=== PATIENT | male | born 1955 | race Caucasian/White ===

== ENCOUNTER 2021-06-22 19:42 | Inpatient (IN) | payer OTHER ==
[~2021-06-22] VITALS: Ht 182.9 cm; Wt 147.0 kg
[2021-06-22] MEDS ORDERED: NEURONTIN300 MG PO (20:21)
[2021-06-22] MEDS ORDERED: COREG25 MG PO (20:22)
[2021-06-22] MEDS ORDERED: HYDCHL25 PO (20:28)
[2021-06-22] MEDS ORDERED: METFORMIN HCL500 M3 PO (20:29)
[2021-06-22] MEDS ORDERED: LISI20 PO (20:29)
[2021-06-22] MEDS ORDERED: METHI10 PO (20:29)
[2021-06-22] MEDS ORDERED: OMEP20ER PO (20:30)
[2021-06-22] MEDS ORDERED: ALDACTONE100 MG PO (20:30)
[2021-06-22] MEDS ORDERED: Lamictal150 MG PO (20:30)
[2021-06-22] MEDS ORDERED: Ventolin/Prove6.7 GM INH ×2 (20:31→20:32)
[2021-06-22 20:32] LABS: BASOPHILS ABSOLUTE AUTO 0.04 K/mm3 (0.00-0.23); BASOPHILS PERCENT AUTO 0 % (0-2); EOSINOPHILS ABSOLUTE AUTO 0.02 K/mm3 (0.00-0.68); EOSINOPHILS PERCENT AUTO 0 % (0-6); Hematocrit 45.1 % (37.0-53.0); Hemoglobin 14.2 g/dL (13.5-17.5); IMMATURE GRAN ABSOLUTE AUTO 0.02 K/mm3 (0.00-0.10); IMMATURE GRAN PERCENT AUTO 0 % (0-1); LYMPHOCYTES PERCENT AUTO 14 % (21-46); MONOCYTES ABSOLUTE AUTO 0.81 K/mm3 (0.16-1.47); MONOCYTES PERCENT AUTO 8 % (4-13); Mean Corpuscular HGB 30.5 pg (26.0-34.0); Mean Corpuscular HGB Conc 31.5 g/dL (31.5-36.5); Mean Corpuscular Volume 97 fL (80-100); NEUTROPHILS ABSOLUTE AUTO 7.45 K/mm3 (1.96-9.15); NEUTROPHILS PERCENT AUTO 77 % (41-73); Platelet Count 319 K/mm3 (150-400); RDW Coefficient Variation 13.2 % (11.7-14.2); RDW Standard Deviation 47.5 fL (35.1-46.3); Red Blood Cell Count 4.66 M/mm3 (4.30-5.90); White Blood Cell Count 9.74 K/mm3 (4.00-11.30)
[2021-06-22] MEDS ORDERED: BUPROPION XL150 M1 PO (20:32)
[2021-06-22] MEDS ORDERED: TIZA4 PO (20:33)
[2021-06-22] MEDS ORDERED: JANTOVEN5 M2 PO (20:34)
[2021-06-22] MEDS ORDERED: ATOR40TA PO (20:35)
[2021-06-22] MEDS ORDERED: WARF2.5 PO (20:36)
[2021-06-22 20:48] LABS: Troponin I <0.015 ng/mL (0.000-0.040)
[2021-06-22 20:55] LABS: Alanine Aminotransfer (ALT/SGP 32 U/L (12-78); Albumin, Blood 3.1 g/dL (3.4-5.0); Albumin/Globulin Ratio 0.7 (0.8-1.8); Alk Phos 136 U/L (50-136); Anion Gap 2 mmol/L (6-16); Aspartate Aminotrans (AST/SGOT 15 U/L (12-37); Bilirubin, Total 0.2 mg/dL (0.1-1.0); Blood Urea Nitrogen 36 mg/dL (8-24); Bun/Creatinine Ratio 30.3 (12.0-20.0); CO2, Blood 30 mmol/L (21-32); Chloride, Blood 99 mmol/L (98-108); Creatinine, Blood 1.19 mg/dL (0.60-1.20); Globulin, Blood 4.4 g/dL (2.2-4.0); Glomerular Filtration Rate >60 (60-); Glucose, Blood 150 mg/dL (70-99); Potassium, Blood 5.7 mmol/L (3.5-5.5); Sodium, Blood 131 mmol/L (136-145); Total Protein, Blood 7.5 g/dL (6.4-8.2)
[2021-06-23 00:11] LABS: PCO2 Arterial 54.4 mmHg (35-45); PO2 Arterial 69.3 mmHg (80-100); pH Blood Arterial 7.36 (7.35-7.45)
[2021-06-23 00:32] LABS: SARS-Cov-2 (COVID-19) PCR, MMC NEGATIVE (NEGATIVE)
[2021-06-23 00:39] LABS: International Normalized Ratio 3.44; Prothrombin Time Results 33.3 Sec (9.7-11.5)
--- NOTE | 2021-06-23 05:07 | NUR ---
SHIFT SUMMARY PT TO UNIT FROM ED. AXO. IN ST 100. ON 2LNC, CONTINUES WITH THIS. VSS. PT STATES WOB HAS BECOME "MUCH EASIER". DENIES WHEEZING/CRACKLING. ADMIT COMPLETED. IV INSULIN AND D50 GIVEN PER ORDERS TO DECREASE POTASSIUM. OTHERWISE, PT RESTING IN ROOM. USING CALL LIGHT CORRECTLY.
[2021-06-23 06:02] LABS: BASOPHILS PERCENT AUTO 0 % (0-2); EOSINOPHILS PERCENT AUTO 0 % (0-6); Hematocrit 42.5 % (37.0-53.0); Hemoglobin 13.8 g/dL (13.5-17.5); IMMATURE GRAN ABSOLUTE AUTO 0.02 K/mm3 (0.00-0.10); IMMATURE GRAN PERCENT AUTO 0 % (0-1); LYMPHOCYTES ABSOLUTE AUTO 0.38 K/mm3 (0.84-5.20); LYMPHOCYTES PERCENT AUTO 7 % (21-46); MONOCYTES ABSOLUTE AUTO 0.04 K/mm3 (0.16-1.47); MONOCYTES PERCENT AUTO 1 % (4-13); Mean Corpuscular HGB 30.5 pg (26.0-34.0); Mean Corpuscular HGB Conc 32.5 g/dL (31.5-36.5); Mean Corpuscular Volume 94 fL (80-100); Mean Platelet Volume 9.2 fL (9.1-12.4); NEUTROPHILS ABSOLUTE AUTO 5.17 K/mm3 (1.96-9.15); NEUTROPHILS PERCENT AUTO 92 % (41-73); Platelet Count 282 K/mm3 (150-400); RDW Coefficient Variation 13.1 % (11.7-14.2); RDW Standard Deviation 45.2 fL (35.1-46.3); Red Blood Cell Count 4.52 M/mm3 (4.30-5.90); White Blood Cell Count 5.61 K/mm3 (4.00-11.30)
[2021-06-23 06:42] LABS: Alanine Aminotransfer (ALT/SGP 26 U/L (12-78); Albumin, Blood 2.8 g/dL (3.4-5.0); Albumin/Globulin Ratio 0.7 (0.8-1.8); Alk Phos 127 U/L (50-136); Anion Gap 5 mmol/L (6-16); Aspartate Aminotrans (AST/SGOT 14 U/L (12-37); Bilirubin, Total 0.2 mg/dL (0.1-1.0); Blood Urea Nitrogen 29 mg/dL (8-24); Bun/Creatinine Ratio 26.4 (12.0-20.0); CO2, Blood 29 mmol/L (21-32); Calcium, Blood 9.3 mg/dL (8.5-10.1); Chloride, Blood 97 mmol/L (98-108); Globulin, Blood 4.3 g/dL (2.2-4.0); Glomerular Filtration Rate >60 (60-); Glucose, Blood 209 mg/dL (70-99); Potassium, Blood 5.5 mmol/L (3.5-5.5); Sodium, Blood 131 mmol/L (136-145); Total Protein, Blood 7.1 g/dL (6.4-8.2)
--- NOTE | 2021-06-23 10:17 | NUR ---
CARE ASSUMPTION THIS RN ASSUMED CARE AT 0700. PATIENT IS A/OX4. VSS. SPO2 >90% ON 1L NC. PATIENT REPORTS NO CHEST PAIN, PAIN, OR SOB. PATIENT USED BEDSIDE URINAL. BED IN LOWEST POSITION AND CALL LIGHT WITHIN REACH. WILL CONTINUE TO MONITOR AND PROVIDE CARE.
--- NOTE | 2021-06-23 13:55 | NUR ---
PT ALERT ORIENTED X 4,PT TRANFERED FROM PCU THIS MORNING,PT WANTED TO LEAVE SINCE LAST NIGHT PER BENNIE CAMERON WHO I GET REPORT FROM,PT ASK TO LEAVE CALL MD,BUT PATIENT STILL REFUSE TO STAY ANOTHER NIGHT,RN INFORMED PT THE RISK AND BEFENITS OF LEAVING AGAINST MEDICAL ADVICE, PT STATED "WHERE DO I SIGN",PT SIGN AMA FORM AND WALK OUT AT 1350.
== END 2021-06-23 14:05 | disposition left against medical advice (07) | DRG 189 ==
LOC: ER 19:42 → PCU 23:44 → MEDS 06-23 10:53
PROVIDERS: Emergency Medicine; ADMIT Internal Medicine
DX: J96.01 Acute respiratory failure with hypoxia (principal); J44.1 Chronic obstructive pulmonary disease with (acute) exacerbation; F15.10 Other stimulant abuse, uncomplicated; E11.9 Type 2 diabetes mellitus without complications; I48.91 Unspecified atrial fibrillation; I25.2 Old myocardial infarction; Z23 Encounter for immunization; E78.5 Hyperlipidemia, unspecified; K21.9 Gastro-esophageal reflux disease without esophagitis; E11.40 Type 2 diabetes mellitus with diabetic neuropathy, unspecified; Z79.899 Other long term (current) drug therapy; Z87.891 Personal history of nicotine dependence; I50.9 Heart failure, unspecified; I11.0 Hypertensive heart disease with heart failure
CPT/HCPCS: 36415; 36600; 71045; 80053; 82803; 82947; 83880; 84484; 85025; 85610; 90686; 93005; 93010; 94640; 94644; 96374; 99285-25; A9270; J1815; J2930; J7120; U0004